=== PATIENT | male | born 1990 | race African-American/Black ===

== ENCOUNTER 2016-09-07 18:10 | Emergency (ER) | payer MEDICAID, OTHER ==
[~2016-09-07] VITALS: Ht 185.4 cm; Wt 80.5 kg
[2016-09-07 19:05] VITALS: Ht 185.4 cm; Wt 80.5 kg
[2016-09-07] MEDS ORDERED: LIDOCAINE 1% (MDV) 20 ML INJ INJ STA (19:19)
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
== END 2016-09-07 20:04 | disposition home or self-care (01) ==
LOC: FTE 18:10
DX: S01.511A Laceration without foreign body of lip, initial encounter (principal); X58.XXXA Exposure to other specified factors, initial encounter; Y92.9 Unspecified place or not applicable; Z87.891 Personal history of nicotine dependence
CPT/HCPCS: 12011; Z7502; Z7610

== ENCOUNTER 2016-09-17 11:07 | Emergency (ER) | payer MEDICAID ==
[~2016-09-17] VITALS: Ht 182.9 cm; Wt 78.5 kg
[2016-09-17 11:09] VITALS: Ht 182.9 cm; Wt 78.5 kg
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
== END 2016-09-17 13:36 | disposition home or self-care (01) ==
LOC: FTE 11:07
DX: Z48.02 Encounter for removal of sutures (principal); F17.210 Nicotine dependence, cigarettes, uncomplicated
CPT/HCPCS: 99281

== ENCOUNTER 2018-12-03 21:27 | Emergency (ER) | payer SELFPAY ==
[~2018-12-03] VITALS: Ht 185.4 cm; Wt 80.8 kg
[~2018-12-03 21:27] MED LIST: IBUP-1542 PO
[2018-12-03 21:37] VITALS: BP 133/58; PULSE 78; RESP 22; Ht 185.4 cm; Wt 80.8 kg
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
== END 2018-12-03 23:22 | disposition home or self-care (01) ==
LOC: FTE 21:27
DX: R51 Headache (principal); Z87.891 Personal history of nicotine dependence
CPT/HCPCS: 99282